=== PATIENT | male | born 1940 | race Caucasian/White ===

== ENCOUNTER → 2018-05-24 09:20 | Outpatient (CLI) | payer MEDICARE, MEDICAID ==
[2010-07-08 09:56] VITALS: BMI 27.5
== END | disposition home or self-care (01) ==
LOC: D.US 09:20
DX: I12.9 Hypertensive chronic kidney disease with stage 1 through stage 4 chronic kidney disease, or unspecified chronic kidney disease (principal); N18.3 Chronic kidney disease, stage 3 (moderate); I77.9 Disorder of arteries and arterioles, unspecified

== ENCOUNTER 2019-04-01 15:18 | Emergency (ER) | payer MEDICARE, MEDICAID ==
[~2019-04-01] VITALS: Ht 167.6 cm; Wt 72.7 kg
[2019-04-01 15:37] VITALS: Ht 167.6 cm; Wt 72.7 kg
[2019-04-01] MEDS ORDERED: SYNTHROID137 MCG PO (16:02)
[2019-04-01] MEDS ORDERED: NEURONTIN 300300 MG PO (16:02)
[2019-04-01] MEDS ORDERED: PRAVACHOL20 MG PO (16:02)
[2019-04-01] MEDS ORDERED: GLIPIZIDE (16:03)
[2019-04-01] MEDS ORDERED: LISINOPRIL40 MG PO (16:03)
[2019-04-01] MEDS ORDERED: BAYER CHEWABLE81 MG PO (16:03)
[2019-04-01] MEDS ORDERED: PRAVASTATIN (16:03)
[2019-04-01] MEDS ORDERED: HYDROCODON-ACE1 EA10 PO (16:03)
[2019-04-01] MEDS ORDERED: B12 (16:04)
[2019-04-01] MEDS ORDERED: FISH OIL (16:04)
[2019-04-01] MEDS ORDERED: MOVEFREE (16:04)
[2019-04-01] MEDS ORDERED: ULTRAM50 MG PO (17:12)
[2019-04-01 17:25] VITALS: BP 133/55
== END 2019-04-01 17:25 | disposition home or self-care (01) ==
LOC: D.ER 15:18
DX: S53.402A Unspecified sprain of left elbow, initial encounter (principal); V49.9XXA Car occupant (driver) (passenger) injured in unspecified traffic accident, initial encounter; Y93.89 Activity, other specified; Y92.410 Unspecified street and highway as the place of occurrence of the external cause; S50.02XA Contusion of left elbow, initial encounter

== ENCOUNTER → 2019-04-18 08:15 | Outpatient (CLI) | payer MEDICARE, MEDICAID ==
[2019-04-01 15:37] VITALS: BMI 25.8
[~2019-04-18 08:15] MED LIST: B12; BAYER CHEWABLE81 MG PO; FISH OIL; GLIPIZIDE; HYDROCODON-ACE1 EA10 PO; LISINOPRIL40 MG PO; MOVEFREE; NEURONTIN 300300 MG PO; PRAVACHOL20 MG PO; PRAVASTATIN; SYNTHROID137 MCG PO; ULTRAM50 MG PO
== END | disposition home or self-care (01) ==
LOC: D.MRI 08:15
PROVIDERS: ATTEND Orthopaedic Surgery
DX: M25.521 Pain in right elbow (principal)

== ENCOUNTER → 2019-08-28 11:50 | Outpatient (CLI) | payer MEDICARE, MEDICAID ==
[2019-04-01 15:37] VITALS: BMI 25.8
== END | disposition home or self-care (01) ==
LOC: D.CT 11:50
PROVIDERS: ATTEND Family Medicine
DX: I65.22 Occlusion and stenosis of left carotid artery (principal); E11.9 Type 2 diabetes mellitus without complications; E03.9 Hypothyroidism, unspecified

== ENCOUNTER 2019-09-25 09:12 | Inpatient (IN) | payer MEDICARE, MEDICAID ==
[~2019-09-25] VITALS: Ht 175.3 cm; Wt 70.6 kg
[~2019-09-25 09:12] MED LIST changes: -B12; -FISH OIL; +FISH OIL 1,0001 CA1 PO; -GLIPIZIDE; +GLUCOTROL 5 MG T5 MG PO; -MOVEFREE; +MOVEFREE PO; -PRAVASTATIN; +PRAVASTATIN SOD10 MG PO; +VITAMIN B-12500 MCG PO
[2019-09-25] MEDS ORDERED: MUCINEX600 MG PO (10:08)
[2019-09-25] MEDS ORDERED: VITAMIN C500 M1 PO (10:14)
[2019-09-25 12:08] LABS: COLOR YELLOW (YELLOW); HEMATOCRIT 42.7 % (42.0-54.0); HEMOGLOBIN 14.3 g/dL (13.5-17.5); MCH 30.7 pg (26.0-34.0); MCHC 33.5 g/dL (31.0-37.0); MCV 91.6 fL (80.0-100.0); MEAN PLATELET VOLUME 11.1 fL (7.4-10.4); RBC 4.66 10x6/uL (4.20-6.10); RDW 12.9 % (11.5-14.5); WBC 7.6 10x3/uL (4.8-10.8)
[2019-09-25 12:09] LABS: APPEARANCE CLEAR (CLEAR); BILIRUBIN NEGATIVE (NEGATIVE); GLUCOSE 1000 mg/dL (NEGATIVE); KETONE NEGATIVE (NEGATIVE); NITRITE NEGATIVE (NEGATIVE); PROTEIN NEGATIVE (NEGATIVE); UROBILINOGEN NORMAL (NORMAL)
[2019-09-25 12:24] LABS: APTT 26.6 SECONDS (22.8-39.4); PROTIME 13.1 SECONDS (11.6-15.0)
[2019-09-25 12:34] LABS: ALBUMIN 3.8 g/dL (3.4-5.0); ANION GAP 15.5 mmol/L (8-16); BILIRUBIN - TOTAL 0.36 mg/dL (0.2-1.3); CALCIUM 8.9 mg/dL (8.5-10.1); CARBON DIOXIDE 26.1 mmol/L (21.0-32.0); CREATININE - SERUM 1.3 mg/dL (0.6-1.3); POTASSIUM - SERUM 4.6 mmol/L (3.5-5.1); PROTEIN - SERUM 7.3 g/dL (6.4-8.2)
[2019-09-27] VITALS (49 sets, daily range): BP systolic 91–154; BP diastolic 34–68; BMI 23.6
--- NOTE | 2019-09-27 11:45 | NUR ---
PT ARRIVED IN THE UNIT. PT HOOKED TO ICU MONITORS. PT CONFUSED AND RESTLESS. WILL BE 1:1 FOR 1 HOUR. LEFT NECK INCISION C/D/I. TRACHEA MIDLINE. NO STRIDOR NOTED. IVETTE DRAIN NOTED TO LEFT UPPER CHEST. RIGHT SUBCLAVIAN CVL NOTED C/D/I. LEFT RADIAL ANDREE NOTED. WAVE FORM DAMPENDED. DRESSING CHANGED AND WAVE FORM NOW GOOD. FC NOTED WITH CLEAR, YELLOW URINE. NSR ON THE MONITOR. SEE IV FLOW SHEET FOR GTTS. WILL CONT POC.
--- NOTE | 2019-09-27 12:30 | NUR ---
PT CALM BUT VERY DROWSEY STILL. VSS. WILL CONT POC.
--- NOTE | 2019-09-27 13:02 | NUR ---
PT CALM AND FOLLOWINGS COMMANDS. SMILE SYMETRICAL. DIRECTOR PHYSICAL THERAPY STONGS BILATERALLY. EYES PERRLA.
--- NOTE | 2019-09-27 14:29 | NUR ---
PT AWAKE. FACE SYMYTRICAL. NEURO GROSSLY INTACT. ICE CHIPS PROVIDED AND THE PT TOLERATING WELL. WILL CONT POC.
--- NOTE | 2019-09-27 18:17 | NUR ---
PT TOLERATING CLEAR LIQUID DIET WELL. CALL LIGHT IN REACH. WILL CONT POC.
--- NOTE | 2019-09-27 18:49 | NUR ---
DR LOERA CALLED AND UPDATED ON THE PT'S CONDITION. HE IS AWARE THAT WHENEVER THE PT IS RESTING WITH HIS EYES CLOSED, THAT THE PTS HEART RATE DECREASE TO 47-50'S. NO NEW ORDERS AT THIS TIME.
--- NOTE | 2019-09-27 19:18 | NUR ---
REPORT RECEIVED, SHIFT ASSESSMENT COMPLETED PER FLOW SHEET, SEE FOR DETAILS. ICE PACK PLACED TO LT NECK, NO SWELLING NOTED. PATIENT DENIES PAIN. ENCOURAGED USE OF INCENTIVE SPIROMETER, TURN/COUGH/DEEP BREATHE, PATIENT PULLING 1200 X10 ON INCENTIVE SPIROMETER. DENIES NEEDS. CALL LIGHT WITHIN REACH. 2000 O2 SAT 98%, O2 TURNED DOWN TO 2 L NC, TOLERATING WELL. PULLING 1250 X10 ON ICENTIVE SPIROMETER. DENIES PAIN OR NEEDS. CALL LIGTH WITHIN REACH. 2100 FAMILY AT BEDSIDE, UPDATE GIVEN. PATIENT AND FAMILY DENY ANY NEEDS. CALL LIGHT WITHIN REACH. 2300 02 SAT 97%, O2 TURNED DOWN TO 1 L NC, TOLERATING WELL, DENIES PAIN OR NEEDS. CALL LIGHT WITHIN REACH.
[2019-09-28] VITALS (24 sets, daily range): BP systolic 100–144; BP diastolic 37–69; Ht 175.3 cm; Wt 70.6 kg
--- NOTE | 2019-09-28 01:00 | NUR ---
RESTING, NO ACUTE DISTRESS NOTED, DENIES PAIN OR NEEDS. CALL LIGHT WITHIN REACH. WILL CONTINUE TO MONITOR. 0314 REASSESSMENT COMPLETED PER FLOW SHEET, SEE FOR DETIALS. NO ACUTE DISTRESS NOTED. DENIES PAIN OR NEEDS. CALL LIGHT WITHIN REACH. WILL CONTINUE TO MONITOR.
--- NOTE | 2019-09-28 04:30 | NUR ---
FAMILY AT BEDSIDE, UPDATE GIVEN. PATIENT DENIES PAIN OR NEEDS. CALL LIGHT WITHIN REACH. NO ACUTE DISTRESS NOTED. WILL CONTINUE TO MONITOR.
--- NOTE | 2019-09-28 05:45 | NUR ---
DR. EVARISTO NICHOLS'S ASSISSTANT AT BEDSIDE, DISCONTINUED IVETTE DRAIN, PATIENT TOLERATED WELL. DENIES PAIN OR NEEDS. CALL LIGHT WITHIN REACH. WILL CONTINUE TO MONITOR.
--- NOTE | 2019-09-28 09:30 | NUR ---
0700 PT RECIEVED ALERT AND ORIENTED VSS, DENIES PAIN, R SUBCLAVIAN CVL DRESSING CDI, SEE IV FLOWSHEET, R A LINE ZEROED GOOD WAVEFORM WRIST PROTECTOR IN PLACE, L NECK INCISION CDI NEURO CHECKS WNL, JAVIER DRAINING YELLOW URINE, CALL LIGHT WITHIN REACH 0830 A LINE AND JAVIER DCD PER PROTOCOL TIP INTACT ASSISTED UP TO CHAIR 0900 AM MEDS GIVEN, BREAKFAST TRAY SERVED, FAMILY AT BEDSIDE
--- NOTE | 2019-09-28 17:02 | NUR ---
1100 PT AMBULATED WITH THERAPY 1200 ATE 75% LUNCH 1600 FAMILY HERE FOR VISITATION 1700 ATE 75% DINNER
--- NOTE | 2019-09-28 18:13 | NUR ---
PT ASSISTED BACK TO BED
--- NOTE | 2019-09-28 19:14 | NUR ---
REPORT RECEIVED, SHIFT ASSESSMENT COMPLETED, DENIES PAIN OR NEEDS. NO ACUTE DISTRESS NOTED. CALL LIGHT WITHIN REACH. WILL CONTINUE TO MONITOR. 2033 SCHEDULED MEDS GIVEN, SEE EMAR FOR DETAILS. FAMILY AT BEDSIDE, UPDATE GIVEN. PATIENT DENIES PAIN OR NEEDS. CALL LIGHT WITHIN REACH. 2200 RESTING IN BED, DENIES PAIN OR NEEDS. CALL LIGHT WITHIN REACH. WILL CONTINUE TO MONITOR. 2314 REASSESSMENT COMPLETED PER FLOW SHEET, SEE FOR DETAILS. DENIES PAIN OR NEEDS. WILL CONTINUE TO MONITOR. CALL LIGHT WITHIN REACH. 0100 RESTING, DENIES PAIN OR NEEDS. NO ACUTE DISTRESS NOTED. CALL LIGHT WITHIN REACH. 0307 REASSESSMENT COMPLETED PER FLOW SHEET, SEE FOR DETAILS. DENIES PAIN OR NEEDS. CALL LIGHT WITHIN REACH.
[2019-09-29] VITALS (12 sets, daily range): BP systolic 103–136; BP diastolic 41–72
--- NOTE | 2019-09-29 05:30 | NUR ---
CHG BATH PROVIDED, COMPLETE BED LINEN CHANGE. ASSISSTED TO CHAIR. DENIES PAIN OR NEEDS. CALL LIGHT WITHIN REACH. WILL CONTINUE TO MONITOR.
--- NOTE | 2019-09-29 08:11 | NUR ---
PT UP IN CHAIR. BREAKFAST TRAY SERVED AND PT IS EATING WITH OUT DIFFICULTY.
--- NOTE | 2019-09-29 09:46 | NUR ---
Nutrition Follow-up: POD 2 carotid endarterectomy. Eating well. Diet: Diabetic PO intake: 75% Wt: 155.4# (09/29); 164.2# (09/28) Last BM: 09/26 per chart No new labs Meds noted: Glucotrol, Protonix -Continue current diet as tolerated. -Monitor wt. -RD following.
[2019-09-29] MEDS ORDERED: PLAVIX75 MG PO (11:13)
--- NOTE | 2019-09-29 11:43 | NUR ---
DCD CVL R AC. TIP INTACT, DSNG APPLIED.
--- NOTE | 2019-09-29 15:03 | MORECARE ---
CASE MANAGEMENT DISCHARGE SUMMARY PATIENT: ROBERT LAMBERT UNIT: [id number] ADM DATE: 09/27/19 AGE: 78 : 42 SEX: M ROOM/BED: D[facility] AUTHOR: LULI YUEN PHYSICIAN: REFERRING PHYSICIAN: HEATHER LOERA MD DATE OF SERVICE: 09/29/19 Discharge Plan Patient Name: ROBERT LAMBERT [facility] [facility] 1940 Planned Disposition: Home Anticipated Discharge Date: Discharge Date: 09/29/2019 Expected LOS: Initial Reviewer: [email or web address] Initial Review Date: 09/27/2019 Generated: 09/29/19 4:03 pm Patient Name: ROBERT LAMBERT Page 59908 at 1503 All edits/amendments must be made on the electronic document DICTATION DATE: 09/29/19 1503 REAL ESTATE CLERK: ROXANNE 09/29/19 1503 RPT#: [id number] DC DATE:09/29/19 STATUS: DIS IN [facility] [address] [facility] [place] [address] END OF REPORT
--- NOTE | 2019-09-29 15:22 | MORECARE ---
CASE MANAGEMENT DISCHARGE SUMMARY PATIENT: ROBERT LAMBERT UNIT: [id number] ADM DATE: 09/27/19 AGE: 78 : 42 SEX: M ROOM/BED: [facility] AUTHOR: LULI YUEN PHYSICIAN: REFERRING PHYSICIAN: HEATHER LOERA MD DATE OF SERVICE: 09/29/19 Discharge Plan Patient Name: RBOERT LAMBERT [facility] [facility] 1940 Planned Disposition: Home Anticipated Discharge Date: Discharge Date: 09/29/2019 Expected LOS: Initial Reviewer: [email or web address] Initial Review Date: 09/27/2019 Generated: 09/29/19 4:22 pm DCPIA - Discharge Planning Initial Assessment Updated by [email or web address]: Nellie Curtis on 09/29/19 3:12 pm * Is the patient Alert and Oriented? Yes * How many steps to enter\exit or inside your home? 3 - RAMP * PCP [facility] * Pharmacy [facility] [place] * Preadmission Environment Home with Family * ADLs Independent * Equipment None * List name and contact numbers for known caregivers / representatives who currently or will assist patient after discharge: ERIC LAMBERT -SPOUSE- [phone] * Verbal permission to speak to the caregivers and representatives has been obtained from the patient. Yes * Community resources currently utilized None * Additional services required to return to the preadmission environment? No * Can the patient safely return to the preadmission environment? Yes * Has this patient been hospitalized within the prior 30 days at any hospital? No Last DP export: 09/29/19 2:04 p Patient Name: ROBERT LAMBERT Page 07227 at 1522 All edits/amendments must be made on the electronic document DICTATION DATE: 09/29/191521 QUARANTINE INSPECTOR: ROXANNE 09/29/19 152 RPT#: [id number] DC DATE:09/29/19 STATUS: DIS IN [facility] [address] [place] [address] END OF REPORT
--- NOTE | 2019-09-29 15:31 | MORECARE ---
CASE MANAGEMENT DISCHARGE SUMMARY PATIENT: ROBERT LAMBERT UNIT: [id number] ADM DATE: 09/27/19 AGE: 78 : 42 SEX: M ROOM/BED: D[facility] AUTHOR: ALPA,DOC PHYSICIAN: REFERRING PHYSICIAN: HEATHER LOERA MD DATE OF SERVICE: 09/29/19 Discharge Plan Patient Name: ROBERT LAMBERT Facility: [facility]:[place] : 1940 Planned Disposition: Home Anticipated Discharge Date: Discharge Date: 09/29/2019 Expected LOS: Initial Reviewer: [email or web address] Initial Review Date: 09/27/2019 Generated: 09/29/19 4:31 pm Comments DCP- Discharge Planning Updated by [email or web address]: Nellie Curtis on 09/29/19 2:[address] LATE ENTRY 09/28/19 Patient Name: ROBERT LAMBERT Admission Status: Urgent Accout number: [id number] Admission Date: 09-27-2019 : 1940 Admission Diagnosis: Attending: HEATHER LOERA Current LOS: 1 Anticipated DC Date: Planned Disposition: Home Primary Insurance: [facility] [employer] Discharge Planning Comments: CM met with patient at bedside after explaining CM role and obtaining verbal consent. Patient lives at home with his Eric where he is independent with his care and plans to return there upon discharge. Patient feels this would be a safe discharge. CM discussed availability / needs of home health and medical equipment. Patient denies any discharge needs at this time. Patient states he will have his family drive him home upon discharge. CM will continue to follow and assist as needed with discharge planning / needs. Rail Tractor Operator: Nellie Curtis DCPIA - Discharge Planning Initial Assessment Updated by [email or web address]: Nellie Curtis on 09/29/19 3:12 pm * Is the patient Alert and Oriented? Yes * How many steps to enter\exit or inside your home? 3 - RAMP * PCP [facility] * Pharmacy [facility] [place] * Preadmission Environment Home with Family * ADLs Independent * Equipment None * List name and contact numbers for known caregivers / representatives who currently or will assist patient after discharge: ERIC LAMBERT -SPOUSE- [phone] * Verbal permission to speak to the caregivers and representatives has been obtained from the patient. Yes * Community resources currently utilized None * Additional services required to return to the preadmission environment? No * Can the patient safely return to the preadmission environment? Yes * Has this patient been hospitalized within the prior 30 days at any hospital? No Last DP export: 09/29/19 2:22 p Patient Name: ROBERT LAMBERT Page 04282 at 1531 All edits/amendments must be made on the electronic document DICTATION DATE: 09/29/19 1531 [employer]: ROXANNE 09/29/19 1531 RPT#: [id number] DC DATE:09/29/19 STATUS: DIS IN [facility] [address] [place] [address] END OF REPORT
--- NOTE | 2019-10-02 12:10 | OP ---
PATIENT NAME: ROBERT LAMBERT MEDICAL RECORD: [id number] :44 LOCATION:.[facility] D.CV03 ADMISSION DATE:09/27/19 SURGEON: HEATHER LOERA MD DATE OF OPERATION: 09/27/2019 SURGEON: Heather Loera MD ANESTHESIA: General endotracheal, Dr. Blackburn. OPERATION PERFORMED: Left carotid endarterectomy with patch angioplasty. PREOPERATIVE DIAGNOSIS: Severe left internal carotid artery stenosis. POSTOPERATIVE DIAGNOSIS: Severe left internal carotid artery stenosis. INDICATION FOR OPERATION: Severe left internal carotid artery stenosis. FINDINGS OF THE OPERATION: Severe left internal carotid artery stenosis. There were no EEG changes with clamping or unclamping of the carotid artery. ESTIMATED BLOOD LOSS: Less than 150 mL. DESCRIPTION OF PROCEDURE: After informed consent and adequate preoperative medication evaluation, the patient was brought to the operating room and placed on the table in the supine position. After induction of general endotracheal anesthesia and application of appropriate monitoring devices, the left neck and chest were prepped and draped in sterile field, utilizing Betadine scrub, alcohol, and Betadine solution. Betadine-impregnated drape was also used. An oblique incision was made in the skin crease. Dissection carried down the fascia. Hemostasis maintained with electrocautery. Facial vein was identified and divided. Utilizing sharp dissection, the common carotid, internal and external carotid arteries were dissected free from surrounding structures protecting the neurological structures. The patient was given a calculated dose of heparin. After 3 minutes, clamps were applied. After 2 minutes, no EEG change. The arteriotomy was made and extended with Marroquin scissors. Artery underwent endarterectomy sharply. Artery underwent extensive debridement and irrigation. Utilizing a CorMatrix vascular patch and running 7-0 Prolene suture, the arteriotomy was closed with a patch angioplasty technique. All maneuvers to remove trapped air were performed. The clamps removed sequentially. There were no EEG changes. The patient was given a calculated dose of protamine to reverse the heparin. Hemostasis was achieved. A #7 Steve-Musa drain was left in depths of wound and brought through the base of the neck. Neck was again irrigated. Instrument count and sponge count were correct times 2. Neck was closed in layers utilizing 3-0 Vicryl on the platysma, 5-0 subcuticular Monocryl on the skin. Sterile dressings were applied. The patient tolerated the procedure well and transferred to CV ICU in satisfactory condition. TRANSINT:[id number] Voice Confirmation ID: [id number] DOCUMENT ID: [id number] OPERATIVE REPORT [id number] ROBERT LAMBERT EDWARD MD at 1210 CC: [id number] DICTATION DATE: 09/27/19 1203 DOUBLE BASS PLAYER: 09/27/19 1439 DIS IN 09/29/19 [place] [id number] [place] [id number]
== END 2019-09-29 12:36 | disposition home or self-care (01) | DRG 39 ==
LOC: D.CVICU 09-27 06:10 → D.SDCHOLD 09-27 06:10 → D.CVICU 09-27 12:08
PROVIDERS: ADMIT Internal Medicine Cardiovascular Disease; ATTEND Internal Medicine Cardiovascular Disease
PROC: 03UL0JZ Supplement Left Internal Carotid Artery with Synthetic Substitute, Open Approach (ICD-10-PCS; 2019-09-27)
PROC: 03CL0ZZ Extirpation of Matter from Left Internal Carotid Artery, Open Approach (ICD-10-PCS; principal; 2019-09-27 09:00)
DX: I65.22 Occlusion and stenosis of left carotid artery (principal); N18.9 Chronic kidney disease, unspecified

== ENCOUNTER 2019-10-02 17:25 | Emergency (ER) | payer MEDICARE, MEDICAID ==
[~2019-10-02] VITALS: Ht 175.3 cm; Wt 72.7 kg
[~2019-10-02 17:25] MED LIST changes: +MUCINEX600 MG PO; +PLAVIX75 MG PO; +VITAMIN C500 M1 PO
[2019-10-02 18:06] VITALS: Ht 175.3 cm; Wt 72.7 kg
[2019-10-02 20:02] VITALS: BP 175/80
== END 2019-10-02 20:01 | disposition home or self-care (01) ==
LOC: D.ER 17:25
DX: Z48.89 Encounter for other specified surgical aftercare (principal); E11.9 Type 2 diabetes mellitus without complications; I25.2 Old myocardial infarction; Z95.5 Presence of coronary angioplasty implant and graft; I25.10 Atherosclerotic heart disease of native coronary artery without angina pectoris; M54.9 Dorsalgia, unspecified